=== PATIENT | female | born 1940 | race Caucasian/White ===

== ENCOUNTER 2016-04-20 10:07 | Outpatient (CLI) | payer OTHER, BC ==
--- NOTE | 2016-04-20 13:38 | DIAGNOSTIC IMAGING REPORT ---
PROCEDURE: MG BILATERAL SCREENING W/CAD INDICATION: SCREENING TECHNIQUE: Bilateral CC and MLO digital views. COMPARISON: Compared to 04/15/2015, 06/13/2013, and 06/02/2011. FINDINGS: Computer-aided detection applied. Moderately dense with a few dystrophic calcifications. There is a 2.5 cm asymmetry in the upper central posterior left breast (seen only on the MLO view). The rest of the breasts are unchanged. IMPRESSION: 1. There is a 2.5 cm asymmetry in the upper central left breast (seen only on the MLO view). While this may represent normal asymmetric parenchyma, underlying mass or architectural distortion should be considered. Further mammographic views (true lateral view, CC and MLO spot compression views) are recommended. In addition, left breast ultrasound is recommended. RESULT CODE: 0- Incomplete; needs additional evaluation. A. A negative report should not delay biopsy if a dominant or clinically suspicious mass is present. 10-15% of cancers are not identified by x-ray. B. A negative report may reinforce clinical impression. C. Adenosis and dense breasts may obscure an underlying neoplasm. D. False positive reports average 6-10%. E.. A yearly screening mammogram is recommended. A reminder letter will be scheduled.
== END 2016-04-20 23:00 ==
LOC: MAM SRH 10:07
DX: Z12.31 Encounter for screening mammogram for malignant neoplasm of breast (principal)

== ENCOUNTER 2016-04-28 13:39 | Outpatient (CLI) | payer OTHER, BC ==
--- NOTE | 2016-04-28 14:30 | DIAGNOSTIC IMAGING REPORT ---
PROCEDURE: MG UNILATERAL DIAG-LT W/CAD INDICATION: Follow-up asymmetric density left central breast. TECHNIQUE: True lateral and exaggerated CC digital views of the left breast. In addition, spot compression CC and MLO views were obtained of the left central breast (region of clinical concern). COMPARISON: Compared to 04/20/2016, 04/15/2015, and 06/13/2013. FINDINGS: MAMMOGRAM: Computer-aided detection applied. Moderately dense parenchymal pattern. There is no evidence of mass or architectural distortion. Findings are most compatible with normal asymmetric parenchyma. Breast ultrasound is not indicated at this time. IMPRESSION: 1. Negative mammogram. 2. Resume routine screening schedule (April 2017). 3. Findings discussed with the patient. RESULT CODE: 1- Negative. A. A negative report should not delay biopsy if a dominant or clinically suspicious mass is present. 10-15% of cancers are not identified by x-ray. B. A negative report may reinforce clinical impression. C. Adenosis and dense breasts may obscure an underlying neoplasm. D. False positive reports average 6-10%. E.. A yearly screening mammogram is recommended. A reminder letter will be scheduled.
== END 2016-04-28 23:00 ==
LOC: MAM SRH 13:39
DX: N64.89 Other specified disorders of breast (principal)